=== PATIENT | male | born 1955 | race Caucasian/White ===

== ENCOUNTER → 2016-09-22 | Outpatient (CLI) | payer OTHER ==
--- NOTE | 2016-09-22 17:42 | DX ---
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 Comparison: PA and lateral chest September 13, 2015. Findings: The lungs are clear. The heart and pulmonary vasculature are normal. Degenerative change is present in the spine. Impression: Stable chest with no evidence of metastases. CT chest is more sensitive for small pulmona ry nodules.
== END ==
LOC: BMCIMAGING 15:36
PROVIDERS: ATTEND Internal Medicine Hematology & Oncology
DX: Z12.2 Encounter for screening for malignant neoplasm of respiratory organs (principal); C49.22 Malignant neoplasm of connective and soft tissue of left lower limb, including hip

== ENCOUNTER → 2017-03-20 | Outpatient (CLI) | payer OTHER | LOC: FIMAGING 12:06 | PROVIDERS: ATTEND Internal Medicine Hematology & Oncology | DX: Z03.89 Encounter for observation for other suspected diseases and conditions ruled out (principal); C49.22 Malignant neoplasm of connective and soft tissue of left lower limb, including hip ==

== ENCOUNTER → 2017-11-30 | Outpatient (CLI) | payer OTHER | LOC: FIMAGING 09:27 | PROVIDERS: ATTEND Internal Medicine Hematology & Oncology | DX: J40 Bronchitis, not specified as acute or chronic (principal) ==